=== PATIENT | male | born 1960 | race Caucasian/White ===

== ENCOUNTER 2016-05-27 08:40 | Emergency (ER) | payer OTHER ==
[~2016-05-27] VITALS: Ht 175.3 cm; Wt 86.0 kg
[~2016-05-27 08:40] MED LIST: ACTONEL150 MG PO; ADALAT CC 30 MG30 MG PO; ADALAT CC 60 MG60 MG PO; ALLOPURINOL100 MG PO; ANTACID650 MG PO; ASPIRIN EC325 M1 PO; ASPIRIN325 MG PO; ATENOLOL25 M1 PO; ATENOLOL25 MG PO; AZITHROMYCIN250 MG1 PO; Allopurinol PO; Aspirin EC PO; Atenolol PO; CALCIUM 500 MG1 EACH PO; CALCIUM OYSTER SHELL PO; CALCIUM OYSTER500 MG PO; CEFTIN500 MG PO; CELLCEPT250 MG PO; CELLCEPT500 MG PO; CIPRO500 MG PO; CLEOCIN300 MG PO; CLINDAMYCIN HC300 MG PO; COATED ASPIRIN325 MG PO; CYCLOSPORINE100 M2 PO; CYCLOSPORINE100 MG PO; CYCLOSPORINE25 M2 PO; CYCLOSPORINE50 MG PO; Cellcept PO; Diflucan PO; ECOTRIN325 MG PO; Ecotrin PO; FLUCONAZOLE150 MG PO; Feosol PO; INDOCIN50 MG PO; INVANZ1 G1 IV; INVanz IV; IRON PO; IRON TABLET PO; IRON325 MG PO; IRON45 MG PO; IRON55 MG PO; Levaquin PO; NEORAL,GENGRAF25 MG PO; NEPHRO-VITE RX1 EACH PO; NEPHRO-VITE,1 TABLET PO; NIFEDICAL XL30 MG PO; NIFEDICAL XL60 MG PO; NIFEDIPINE ER30 MG PO; PREDNISOLONE5 MG PO; PREDNISONE5 M2 PO; PREDNISONE5 MG PO; PROCARDIA XL60 MG PO; PROTONIX DR PO; PROTONIX40 MG PO; Procardia XL,Adalat PO; Protonix PO; SANDIMMUNE100 MG PO; SANDIMMUNE25 MG PO; SODIUM BICARBO325 M1; SODIUM BICARBO325 MG PO; SandIMMUNE PO; Sodium Bicarbonate PO; TENORMIN25 MG PO; TYLENOL EXTRA500 MG PO; TYLENOL REGULA325 MG PO; Tenormin PO; Tylenol Regular Stre PO; VANCOMYCIN1 GM/2001 IV; VICODIN,LORT1 TABLET PO; VITAMIN B-12500 MC4 PO; VITAMIN B12 PO; VITAMIN B12-FO1 EACH PO; VITAMIN D400 INTUNI PO; VITAMIN D400 UNI1 PO; VITAMIN D400 UNIT PO; Vitamin D PO; ZOFRAN8 MG PO; ZYLOPRIM100 MG PO; ZYVOX600 MG PO; Zyloprim PO; [UNRECOGNIZED DRUG - OTHER] PO; [UNRECOGNIZED DRUG - REMARK] PO; predniSONE PO
[2016-05-27] MEDS ORDERED: CYCLOSPORINE100 M2 PO (09:01)
[2016-05-27] MEDS ORDERED: CELLCEPT500 MG PO (09:01)
[2016-05-27] MEDS ORDERED: LITE COAT ASPI325 M1 PO (09:03)
[2016-05-27] MEDS ORDERED: ATENOLOL25 MG PO (09:04)
[2016-05-27] MEDS ORDERED: MILLIPRED5 MG PO (09:04)
[2016-05-27] MEDS ORDERED: PERFECT IRON25 MG PO (09:05)
[2016-05-27] MEDS ORDERED: PROCARDIA XL60 MG PO (09:06)
[2016-05-27] MEDS ORDERED: PROCARDIA XL30 MG PO (09:06)
[2016-05-27] MEDS ORDERED: VITAMIN D400 UNIT PO (09:07)
[2016-05-27] MEDS ORDERED: NEPHRO-VITE,1 TABLET PO (09:07)
[2016-05-27] MEDS ORDERED: ALLOPURINOL100 MG PO (09:07)
[2016-05-27] MEDS ORDERED: CALCIUM500 M4 PO (09:08)
[2016-05-27] MEDS ORDERED: PROTONIX40 MG PO (09:08)
[2016-05-27] MEDS ORDERED: NABI650T PO (09:08)
[2016-05-27] MEDS ORDERED: ZITHROMAX Z-PA250 MG PO (09:10)
[2016-05-27 09:16] LABS: EOSINOPHIL (%) 2.5 % (0-5); EOSINOPHIL COUNT 0.2 K/uL (0-0.3); IMMATURE GRANULOCYTE (%) 0.2 % (0.0-0.7); IMMATURE GRANULOCYTE COUNT 0.2 K/uL; LYMPHOCYTE COUNT 1.6 K/uL (1.0-2.8); MCHC 32.1 G/DL (30.0-36.0); MCV 87.1 FL (86-99); MEAN PLAT.VOLUME 10.2 uM^3 (9.0-12.4); MONOCYTE (%) 12.3 % (3-12); MONOCYTE COUNT 1.2 K/uL (0-0.8); NEUTROPHIL (%) 67.8 % (45-76); NEUTROPHIL COUNT 6.3 K/uL (1.8-6.4); PLATELET COUNT 185 K/uL (156-360); RBC DIS.WIDTH-CV 14.8 % (11.8-14.6); RBC DIS.WIDTH-SD 46.3 % (39-53); RED BLOOD COUNT 4.82 M/uL (4.00-5.50); WHITE BLOOD COUNT 9.4 K/uL (4.1-10.2)
[2016-05-27 09:24] LABS: CHLORIDE 113 mEq/L (99-109); POTASSIUM 4.3 mEq/L (3.7-5.4); SODIUM 143 mEq/L (136-147)
[2016-05-27 09:26] LABS: GLUCOSE 124 mg/dL (70-99)
[2016-05-27 09:27] LABS: ANION GAP 11 MEQ/L (2-14)
[2016-05-27 09:30] LABS: GFR ESTIMATE (CALCULATED) 37 mL/min/
[2016-05-27 09:31] LABS: UREA NITROGEN (BUN) 44 mg/dL (9-23)
[2016-05-27 10:17] LABS: INFLUENZA A VIRAL ANTIGEN NEGATIVE; INFLUENZA B VIRAL ANTIGEN NEGATIVE
[2016-05-27 12:57] LABS: CHLORIDE 118 mEq/L (99-109); POTASSIUM 4.7 mEq/L (3.7-5.4); SODIUM 145 mEq/L (136-147)
[2016-05-27 12:58] LABS: GLUCOSE 99 mg/dL (70-99)
[2016-05-27 13:00] LABS: ANION GAP 11 MEQ/L (2-14)
[2016-05-27 13:02] LABS: GFR ESTIMATE (CALCULATED) 48 mL/min/
[2016-05-27 13:03] LABS: UREA NITROGEN (BUN) 42 mg/dL (9-23)
[2016-05-27 14:13] VITALS: BP 135/76
== END 2016-05-27 14:14 | disposition home or self-care (01) ==
LOC: EME 08:40
PROVIDERS: Emergency Medicine
DX: J40 Bronchitis, not specified as acute or chronic (principal); E86.0 Dehydration; Z94.0 Kidney transplant status; Z94.83 Pancreas transplant status; Z88.2 Allergy status to sulfonamides
CPT/HCPCS: 71020; 80048; 80048 91; 85025; 87502; 99281; 99284; J7030

== ENCOUNTER 2016-09-03 08:49 | Emergency (ER) | payer OTHER ==
[~2016-09-03] VITALS: Ht 175.3 cm; Wt 84.0 kg
[~2016-09-03 08:49] MED LIST changes: +CALCIUM500 M4 PO; +LITE COAT ASPI325 M1 PO; +MILLIPRED5 MG PO; +NABI650T PO; +PERFECT IRON25 MG PO; +PROCARDIA XL30 MG PO; +ZITHROMAX Z-PA250 MG PO
[2016-09-03 10:21] LABS: EOSINOPHIL (%) 0.2 % (0-5); HEMATOCRIT 48.5 % (38.0-50.0); IMMATURE GRANULOCYTE (%) 0.5 % (0.0-0.7); IMMATURE GRANULOCYTE COUNT 0.1 K/uL; INSTRUMENT ABS NEUTROPHIL CT 9.9 K/uL; LYMPHOCYTE COUNT 1.7 K/uL (1.0-2.8); MCH 28.2 PG (29.0-34.0); MCHC 31.8 G/DL (30.0-36.0); MCV 88.8 FL (86-99); MEAN PLAT.VOLUME 10.5 uM^3 (9.0-12.4); MONOCYTE (%) 6.8 % (3-12); MONOCYTE COUNT 0.9 K/uL (0-0.8); NEUTROPHIL (%) 78.9 % (45-76); NEUTROPHIL COUNT 9.9 K/uL (1.8-6.4); PLATELET COUNT 257 K/uL (156-360); RBC DIS.WIDTH-CV 14.6 % (11.8-14.6); RBC DIS.WIDTH-SD 46.8 % (39-53); RED BLOOD COUNT 5.46 M/uL (4.00-5.50)
[2016-09-03 10:23] LABS: WHITE BLOOD COUNT 12.6 K/uL (4.1-10.2)
[2016-09-03 10:33] LABS: CHLORIDE 115 mEq/L (99-109); POTASSIUM 4.4 mEq/L (3.7-5.4); SODIUM 143 mEq/L (136-147)
[2016-09-03 10:35] LABS: GLUCOSE 83 mg/dL (70-99)
[2016-09-03 10:36] LABS: ANION GAP 10 MEQ/L (2-14)
[2016-09-03 10:37] LABS: TOTAL BILIRUBIN 0.9 mg/dL (0.0-1.0)
[2016-09-03 10:38] LABS: ALKALINE PHOSPHATASE 67 IU/L (3-129)
[2016-09-03 10:39] LABS: GFR ESTIMATE (CALCULATED) 40 mL/min/
[2016-09-03 10:40] LABS: UREA NITROGEN (BUN) 41 mg/dL (9-23)
[2016-09-03 10:42] LABS: LIPASE 90 U/L (1.0-51.0); TROP-I INTERPRETATION NEGATIVE; TROPONIN-I < 0.01 ng/mL (0.0-0.30)
[2016-09-03 13:43] LABS: ADD MIUA? YES; BILIRUBIN NEGATIVE; BLOOD SMALL; COLOR STRAW ((YELLOW)); GLUCOSE (STRIP) NEGATIVE; KETONES NEGATIVE; LEUKOCYTES LARGE; NITRITE NEGATIVE; PROTEIN (STRIP) NEGATIVE; SPECIFIC GRAVITY 1.008 (1.000-1.030); UROBILINOGEN 0.2 MG/DL (0.2-1.0)
[2016-09-03 13:49] LABS: BACTERIA RARE /HPF; EPITHELIAL CELLS NONE SEEN /HPF; MUCUS TRACE /LPF; RED BLOOD CELLS 0-5 /HPF (0-5); UCUL ADDED? NO; WHITE BLOOD CELLS 0-5 /HPF (0-5)
[2016-09-03 14:19] VITALS: BP 150/98
== END 2016-09-03 14:20 | disposition home or self-care (01) ==
LOC: EME 08:49
PROVIDERS: Emergency Medicine
DX: E86.0 Dehydration (principal); R42 Dizziness and giddiness; N18.9 Chronic kidney disease, unspecified; Z94.0 Kidney transplant status; Z94.83 Pancreas transplant status; I10 Essential (primary) hypertension; K21.9 Gastro-esophageal reflux disease without esophagitis
CPT/HCPCS: 71010; 80053; 81003; 83605; 83690; 84484; 85025; 87040; 87086; 93005; 99281; 99285

== ENCOUNTER 2016-09-07 08:51 | Emergency (ER) | payer OTHER ==
[~2016-09-07] VITALS: Ht 175.3 cm; Wt 81.8 kg
[2016-09-07 09:43] LABS: HEMATOCRIT 43.3 % (38.0-50.0); MCHC 31.9 G/DL (30.0-36.0); MCV 87.8 FL (86-99); MEAN PLAT.VOLUME 10.4 uM^3 (9.0-12.4); PLATELET COUNT 225 K/uL (156-360); RBC DIS.WIDTH-CV 14.1 % (11.8-14.6); RBC DIS.WIDTH-SD 44.7 % (39-53); RED BLOOD COUNT 4.93 M/uL (4.00-5.50); WHITE BLOOD COUNT 10.7 K/uL (4.1-10.2)
[2016-09-07 09:51] LABS: CHLORIDE 110 mEq/L (99-109); POTASSIUM 3.9 mEq/L (3.7-5.4); SODIUM 143 mEq/L (136-147)
[2016-09-07 09:52] LABS: GLUCOSE 98 mg/dL (70-99)
[2016-09-07 09:54] LABS: ANION GAP 10 MEQ/L (2-14)
[2016-09-07 09:56] LABS: GFR ESTIMATE (CALCULATED) 52 mL/min/
[2016-09-07 09:57] LABS: UREA NITROGEN (BUN) 28 mg/dL (9-23)
[2016-09-07 13:53] VITALS: BP 132/73
== END 2016-09-07 13:58 | disposition home or self-care (01) ==
LOC: EME 08:51
DX: R42 Dizziness and giddiness (principal); R51 Headache; I12.9 Hypertensive chronic kidney disease with stage 1 through stage 4 chronic kidney disease, or unspecified chronic kidney disease; N18.9 Chronic kidney disease, unspecified; Z94.0 Kidney transplant status; Z94.83 Pancreas transplant status; Z79.52 Long term (current) use of systemic steroids; Z79.82 Long term (current) use of aspirin; Z89.512 Acquired absence of left leg below knee
CPT/HCPCS: 70450; 71020; 80048; 85027; 93005; 99281; 99285; G8978 GP CH; G8979 GP CH; G8980 GP CH; G8987 GO CH; G8988 GO CH; G8989 GO CH; J2405; J7030

== ENCOUNTER 2016-12-07 10:17 | Day surgery (SDC) | payer OTHER ==
[~2016-12-07] VITALS: Ht 175.3 cm; Wt 81.8 kg
[2016-12-07 11:20] VITALS: BP 127/70
[2016-12-07 11:57] LABS: METH RESISTANT S AUREUS PCR NEGATIVE (NEGATIVE)
[2016-12-07 12:04] LABS: PROBE CHECK PASS; SPECIMEN PROCESSING CONTROL PASS
[2016-12-07 15:36] VITALS: BP 108/71
== END 2016-12-07 16:10 | disposition home or self-care (01) ==
LOC: SDC 10:17
PROVIDERS: Surgery Plastic and Reconstructive Surgery
DX: T87.89 Other complications of amputation stump (principal); I12.0 Hypertensive chronic kidney disease with stage 5 chronic kidney disease or end stage renal disease; E11.22 Type 2 diabetes mellitus with diabetic chronic kidney disease; N18.6 End stage renal disease; L89.894 Pressure ulcer of other site, stage 4; I73.9 Peripheral vascular disease, unspecified; K21.9 Gastro-esophageal reflux disease without esophagitis; M81.0 Age-related osteoporosis without current pathological fracture; Z94.0 Kidney transplant status; Z94.83 Pancreas transplant status; Z88.2 Allergy status to sulfonamides
CPT/HCPCS: 87641; J0131; J0171; J0690; J2250; J2405; J3010

== ENCOUNTER 2017-02-08 14:48 | Inpatient (IN) | payer OTHER ==
[~2017-02-08] VITALS: Ht 175.3 cm; Wt 75.4 kg
[~2017-02-08 14:48] MED LIST changes: +CYCLOSPORINE25 M3 PO; +IRON325 M1 PO; -MILLIPRED5 MG PO; -PERFECT IRON25 MG PO; +PROTONIX20 MG PO
[2017-02-08 15:32] LABS: HEMATOCRIT 44.2 % (38.0-50.0); MCH 28.3 PG (29.0-34.0); MCHC 31.7 G/DL (30.0-36.0); MCV 89.5 FL (86-99); MEAN PLAT.VOLUME 11.1 uM^3 (9.0-12.4); PLATELET COUNT 235 K/uL (156-360); RBC DIS.WIDTH-CV 15.8 % (11.8-14.6); RBC DIS.WIDTH-SD 51.3 % (39-53); RED BLOOD COUNT 4.94 M/uL (4.00-5.50); WHITE BLOOD COUNT 8.8 K/uL (4.1-10.2)
[2017-02-08 15:41] LABS: CHLORIDE 117 mEq/L (99-109); SODIUM 136 mEq/L (136-147)
[2017-02-08 15:44] LABS: ANION GAP 10 MEQ/L (2-14)
[2017-02-08 15:46] LABS: GLUCOSE 139 mg/dL (70-99)
[2017-02-08 15:47] LABS: GFR ESTIMATE (CALCULATED) 23 mL/min/
[2017-02-08 15:51] LABS: POTASSIUM 6.2 mEq/L (3.7-5.4); UREA NITROGEN (BUN) 109 mg/dL (9-23)
[2017-02-08] MEDS ORDERED: CYCLOSPORINE25 M3 PO (17:08)
[2017-02-08] MEDS ORDERED: CLEOCIN300 MG PO (17:08)
[2017-02-08 18:02] LABS: POINT-OF-CARE METER ID UU13113747
[2017-02-08 20:48] VITALS: BP 133/70
[2017-02-09] VITALS (8 sets, daily range): BP systolic 98–163; BP diastolic 53–847
[2017-02-09 06:07] LABS: ANION GAP 13 MEQ/L (2-14); CHLORIDE 122 MEQ/L (99-109); SAMPLE HEMOLYSIS CHECK 0; SAMPLE ICTERIC CHECK 0; SAMPLE LIPEMIA CHECK 0; UREA NITROGEN (BUN) 85 mg/dL (9-23)
[2017-02-09 06:08] LABS: GFR ESTIMATE (CALCULATED) 33 mL/min/; GLUCOSE 81 mg/dL (70-99); POTASSIUM 4.4 MEQ/L (3.7-5.4); SODIUM 144 MEQ/L (136-147)
[2017-02-09 06:12] LABS: CARBON DIOXIDE (BICARBONATE) < 10.0 MEQ/L (20-31)
[2017-02-09 17:33] LABS: CK-MB 9.3 ng/mL (0.0-4.9)
[2017-02-09 17:40] LABS: CHLORIDE 118 MEQ/L (99-109); GFR ESTIMATE (CALCULATED) 39 mL/min/; GLUCOSE 138 mg/dL (70-99); POTASSIUM 4.3 MEQ/L (3.7-5.4); SODIUM 140 MEQ/L (136-147); UREA NITROGEN (BUN) 74 mg/dL (9-23)
[2017-02-09 17:41] LABS: ANION GAP 9 MEQ/L (2-14); CREATINE KINASE 776 IU/L (1-294); TOTAL CK 776 IU/L (1-294)
[2017-02-10 05:17] VITALS: BP 132/73
[2017-02-10 05:56] LABS: EOSINOPHIL (%) 0.3 % (0-5); HEMATOCRIT 34.9 % (38.0-50.0); IMMATURE GRANULOCYTE (%) 0.2 % (0.0-0.7); INSTRUMENT ABS NEUTROPHIL CT 3.2 K/uL; MCH 27.8 PG (29.0-34.0); MCHC 32.4 G/DL (30.0-36.0); MCV 85.7 FL (86-99); MONOCYTE (%) 15.7 % (3-12); NEUTROPHIL (%) 51.4 % (45-76); NEUTROPHIL COUNT 3.2 K/uL (1.8-6.4); PLATELET COUNT 203 K/uL (156-360); RBC DIS.WIDTH-CV 15.2 % (11.8-14.6); RBC DIS.WIDTH-SD 47.6 % (39-53); RED BLOOD COUNT 4.07 M/uL (4.00-5.50); WHITE BLOOD COUNT 6.3 K/uL (4.1-10.2)
[2017-02-10 06:30] LABS: ANION GAP 9 MEQ/L (2-14); CHLORIDE 114 MEQ/L (99-109); GFR ESTIMATE (CALCULATED) 48 mL/min/; SAMPLE HEMOLYSIS CHECK 0; SAMPLE ICTERIC CHECK 0; SAMPLE LIPEMIA CHECK 0; SODIUM 143 MEQ/L (136-147); UREA NITROGEN (BUN) 64 mg/dL (9-23)
[2017-02-10 06:31] LABS: GLUCOSE 103 mg/dL (70-99); POTASSIUM 3.4 MEQ/L (3.7-5.4)
[2017-02-10 07:29] VITALS: BP 145/81
[2017-02-10 11:47] VITALS: BP 134/85
[2017-02-10] MEDS ORDERED: KEFLEX500 MG PO (11:49)
== END 2017-02-10 13:03 | disposition home or self-care (01) | DRG 683 ==
LOC: EME 14:48 → EDOF 16:40 → 4EAST 16:40 → ENRESERV 16:51 → 4EAST 20:39
PROVIDERS: Family Medicine; Internal Medicine Nephrology
DX: N17.9 Acute kidney failure, unspecified (principal); E87.2 Acidosis; E86.0 Dehydration; E87.5 Hyperkalemia; E87.6 Hypokalemia; L89.890 Pressure ulcer of other site, unstageable; B96.89 Other specified bacterial agents as the cause of diseases classified elsewhere; K21.9 Gastro-esophageal reflux disease without esophagitis; I10 Essential (primary) hypertension; M81.0 Age-related osteoporosis without current pathological fracture; I95.9 Hypotension, unspecified; Z89.512 Acquired absence of left leg below knee; Z79.82 Long term (current) use of aspirin; Z88.2 Allergy status to sulfonamides; Z94.83 Pancreas transplant status; Z94.0 Kidney transplant status
CPT/HCPCS: 36415; 71020; 76776; 80048; 80048 91; 80069; 80076; 80158 90; 81003; 82043; 82550; 82553; 82570; 82948; 83690; 85025; 85027; 87070; 87075; 87077; 87186; 87205; 93005; 94644; 99281; 99285; J1644; J2405; J7030; J7070; J7502; J7512; J7515; J7517